=== PATIENT | male | born 2005 | race Caucasian/White ===

== ENCOUNTER 2025-02-13 06:11 | Inpatient (IN) ==
[2025-02-13] MEDS: ALBUT/IPRATROP 3MG/0.5MG NEB 3 ML VIAL INH STA (07:15)
[2025-02-13 07:25] LABS: Hematocrit (blood only) 38.8 % (42.0-52.0); Hemoglobin 13.6 g/dL (14.0-18.0); Immature Granulocytes # (auto) 0.02 K/uL (0.01-0.20); Immature Granulocytes % (auto) 0.3 %; Mean Corpuscular Hemoglobin 31.6 pg (25.0-34.0); Mean Corpuscular Volume 90.0 fL (80.0-100.0); Platelet Count 190 K/uL (130-400); RDW Standard Deviation 38.4 fL (36.4-46.3); Red Blood Count 4.31 M/uL (4.70-6.10); White Blood Count 7.56 K/ul (4.8-10.8)
--- NOTE | 2025-02-13 07:32 | Emergency Department Note ---
History of Present Illness General Chief complaint: Respiratory Problems Stated complaint: TIGHTNESS IN CHEST,COUGH,HEADACHE Time Seen by Provider: 02/13/25 06:34 Source: patient Mode of arrival: ambulatory Limitations: no limitations History of Present Illness Maximum Pain Intensity: 7 Patient is a 19-year-old male with history of asthma who presents with several days of intractable cough and shortness of breath. He also reports chest tightness that is worse with movement. He does state that his apartment has had issues with heating recently and he feels this has triggered his respiratory symptoms. He has tried his inhaler without much relief. Denies any fevers, chills, sore throat, nausea, vomiting, abdominal pain. No recent travel. Multiple sick contacts at the [place] [facility] currently. Home Medications Medication Instructions Recorded Confirmed Type ibuprofen 200 mg tablet 200 mg PO Q6H PRN Pain 02/13/25 02/13/25 History Allergies Allergy/AdvReac Type Severity Reaction Status Date / Time tree and shrub pollen Allergy Unknown Unverified 02/13/25 08:49 tree nut Allergy Unknown Unverified 02/13/25 08:49 Past Med/Surg History Problem List (Updated 02/13/25 @ 09:32 by Paul Rutledge MD) Pneumonia (Acute) Acute viral myocarditis (Acute) Social History Smoking Status: Never smoker Preferred Language: Khmer Feels Safe at Home: Yes Review of Systems Review of systems negative outside of positive findings mentioned in HPI. Physical Exam Vital Signs Vital Signs - 24 hr 02/13/25 06:16 02/13/25 06:25 02/13/25 06:26 Temperature 37.8 C H Temperature Source Temporal Artery Scan Pulse Rate 120 H 112 H Pulse Rate [Finger] Pulse Rhythm Regular Pulse Rhythm [Finger] Pulse Strength Normal Pulse Strength [Finger] Respiratory Rate 17 Respiratory Effort / Characteristics Non-Labored Spontaneous Respiratory Depth Normal Respiratory Pattern Regular Blood Pressure 138/75 Blood Pressure [Right Arm] Blood Pressure Mean 96 Blood Pressure Mean [Right Arm] Blood Pressure Position Sitting Blood Pressure Position [Right Arm] Pulse Oximetry 95 Oxygen Delivery Method Room Air Room Air Sepsis Recent Fever Within 48 Hours No Sepsis New/Unexplained Change in Mental Status N/A Sepsis Action Taken by Nursing No Action Required 02/13/25 06:26 02/13/25 08:00 02/13/25 08:07 Temperature Temperature Source Pulse Rate Pulse Rate [Finger] 117 H 113 H Pulse Rhythm Pulse Rhythm [Finger] Regular Pulse Strength Pulse Strength [Finger] Normal Respiratory Rate 20 19 Respiratory Effort / Characteristics Non-Labored Spontaneous Non-Labored Spontaneous Respiratory Depth Normal Normal Respiratory Pattern Regular Blood Pressure Blood Pressure [Right Arm] 116/68 115/70 Blood Pressure Mean Blood Pressure Mean [Right Arm] 84 85 Blood Pressure Position Blood Pressure Position [Right Arm] Lying Semi-fowlers Pulse Oximetry 96 94 112 H Oxygen Delivery Method Room Air Room Air Room Air Sepsis Recent Fever Within 48 Hours Sepsis New/Unexplained Change in Mental Status Sepsis Action Taken by Nursing 02/13/25 08:07 Temperature Temperature Source Pulse Rate 118 H Pulse Rate [Finger] Pulse Rhythm Pulse Rhythm [Finger] Pulse Strength Pulse Strength [Finger] Respiratory Rate 18 Respiratory Effort / Characteristics Respiratory Depth Respiratory Pattern Blood Pressure Blood Pressure [Right Arm] Blood Pressure Mean Blood Pressure Mean [Right Arm] Blood Pressure Position Blood Pressure Position [Right Arm] Pulse Oximetry 94 Oxygen Delivery Method Room Air Sepsis Recent Fever Within 48 Hours Sepsis New/Unexplained Change in Mental Status Sepsis Action Taken by Nursing See below. Constitutional WD/WN, vitals as above ENMT external ear and nose normal, oropharynx normal Neck trachea midline, no thyromegaly Respiratory normal respiratory effort; no respiratory distress, no labored breathing and does not use accessory muscles Auscultation: + crackles (diffusely ) Cardiovascular Rate/Rhythm: + tachycardic Heart Sounds: normal S1 and normal S2 Extremities: no calf tenderness and no edema Course Administered Medications Discontinued Medications Albuterol (Albut/Ipratrop 3mg/0.5mg Neb 3 Ml Vial) 3 ml INH NOW STA Stop: 02/13/25 06:48 Last Admin: 02/13/25 07:15 Dose: 3 ml Documented By: ANGELICA Ceftriaxone Sodium (Rocephin) 2,000 mg in 50 mls @ 100 mls/hr IV NOW STA Stop: 02/13/25 08:27 Last Infusion: 02/13/25 09:28 Dose: Infused Documented By: Admin: 02/13/25 08:43 Dose: 100 mls/hr Documented By: ANGELICA Medical Decision Making Differential Diagnosis DDx includes but not limited to: viral myocarditis, pericarditis, PNA, viral URI, PE, ACS Medical Records Attestation: I reviewed the patient's medical records. Laboratory Data Attestation: I reviewed the patient's lab results. 11/14/25 07:07 02/13/25 07:07 Lab Results 02/13/25 02/13/25 Range/Units 06:25 07:07 WBC 7.56 (4.8-10.8) K/ul RBC 4.31 L (4.70-6.10) M/uL Hgb 13.6 L (14.0-18.0) g/dL Hct 38.8 L (42.0-52.0) % MCV 90.0 (80.0-100.0) fL MCH 31.6 (25.0-34.0) pg MCHC 35.1 (32.0-36.0) g/dL RDW Std Deviation 38.4 (36.4-46.3) fL RDW Coeff of Tori 11.8 (11.5-14.5) % Plt Count 190 (130-400) K/uL MPV 10.7 (9.4-12.4) fL Immature Gran % (Auto) 0.3 % Neut % (Auto) 75.1 % Lymph % (Auto) 10.2 % [place] % (Auto) 14.3 % Eos % (Auto) 0.1 % Baso % (Auto) 0.0 % Neut # (Auto) 5.68 (1.40-6.50) K/uL Lymph # (Auto) 0.77 L (1.20-3.40) K/uL [place] # (Auto) 1.08 H (0.11-0.59) K/uL Eos # (Auto) 0.01 (0.00-0.50) K/uL Baso # (Auto) 0.00 (0.00-0.20) K/uL Immature Gran # (Auto) 0.02 (0.01-0.20) K/uL D-Dimer 360 (0-500) ug/L FEU Sodium 137 (136-145) mmol/L Potassium 4.2 (3.5-5.1) mmol/L Chloride 101 (98-107) mmol/L Carbon Dioxide 28 (21-32) mmol/L Anion Gap 8 (3-11) BUN 11 (6-23) mg/dl Creatinine 1.13 (0.6-1.4) mg/dl Est Cr Clr Drug Dosing 115.4 ml/min eGFR 96.02 BUN/Creatinine Ratio 9.7 L (10-20) Glucose 118 H (70-99(Fasting)) mg/dl Calcium 9.4 (8.6-10.3) mg/dl Troponin I High Sens 21483.4 H* (0-20) pg/ml B-Natriuretic Peptide 49 (0-100) pg/ml Adenovirus (PCR) DETECTED A (NotDetected) B. pertussis DNA (PCR) Not Detected (NotDetected) B.parapertussis DNA PCR Not Detected (NotDetected) C. pneumoniae DNA (PCR) Not Detected (NotDetected) Coronavirus OC43 (PCR) Not Detected (NotDetected) Coronavirus HKU1 (PCR) Not Detected (NotDetected) Coronavirus 229E (PCR) Not Detected (NotDetected) SARS-CoV-2 (PCR) Not Detected (NotDetected) Coronavirus NL63 (PCR) Not Detected (NotDetected) Human Metapneumovir PCR Not Detected (NotDetected) Influenza Type A (PCR) Not Detected (NotDetected) Influenza Type B (PCR) Not Detected (NotDetected) M. pneumoniae (PCR) Not Detected (NotDetected) Parainfluenza 1 (PCR) Not Detected (NotDetected) Parainfluenza 2 (PCR) Not Detected (NotDetected) Parainfluenza 3 (PCR) Not Detected (NotDetected) Parainfluenza 4 (PCR) Not Detected (NotDetected) RSV (PCR) Not Detected (NotDetected) Entero/Rhino (PCR) Not Detected (NotDetected) Imaging Data Radiologist's Impression: Chest X-Ray 02/13/25 06:22 EXAM: XR chest 2V PA/lateral CLINICAL HISTORY: Cough TECHNIQUE: X-ray images of the chest were obtained in posteroanterior (PA) and lateral projections. COMPARISON: No prior studies available for comparison. FINDINGS: Pulmonary Parenchyma: Mild haziness in the left upper zone, underlying an infective/inflammatory process likely No pulmonary nodules identified. No evidence of pleural effusion or pleural thickening. Heart and Mediastinum: Heart size and shape are normal. No mediastinal widening or masses. No hilar or mediastinal lymphadenopathy. Bony Thorax: Bony thorax appears intact without fractures or deformities. Soft Tissues: Soft tissues overlying the chest wall are unremarkable. IMPRESSION: Mild patchy consolidation in the left upper zone, suggesting infective pneumonic process Clinical and lab parameters correlation is suggested. Electronically signed by Dieudonne Rodriguez 02-13-2025 07:36 AM ECG Data Attestation: I personally reviewed and interpreted this ECG as follows: Indication: + SOB/dyspnea Rate (beats per minute): 111 Rhythm: + sinus tachycardia ECG Intervals/blocks: + Normal QRS, + Normal QT and + Normal [place] ECG [place]: + Normal ECG ST segments: + repolarization abnormalities (Diffuse ST elevation ) Comparison ECG Date: no prior available MDM Narrative Patient is a 19-year-old male who presents for shortness of breath and chest discomfort for several days. Also having a productive cough. Tachycardic on arrival. Stable on room air currently. No evidence of respiratory distress. No wheezing noted on examination however there are crackles on my lung exam. DuoNeb treatment was ordered while workup initiated. Lab work notable for troponin greater than 10,000. Overall clinical picture concerning for viral myocarditis. Adenovirus positive here today. I did order a bedside echocardiogram which was reviewed by Dr. Beckman. He notes mild global hypokinesis. No pericardial effusion noted. No indication for transfer at this time as patient is hemodynamically stable. Supportive care per cardiology. Chest x-ray was reviewed. Left upper lobe opacity noted. IV Rocephin given for possible superimposed bacterial pneumonia. Remaining lab work reviewed and nonconcerning. Stable for admission to hospitalist service for viral myocarditis treatment and pneumonia management. Authorized and Performed by: Myself Total critical care time: Approximately 35 CC diagnosis: Due to a high probability of clinically significant, life threatening deterioration, the patient required my highest level of preparedness to intervene emergently and I personally spent this critical care time directly and personally managing the patient. This critical care time included obtaining a history; examining the patient; pulse oximetry; ordering and review of studies; arranging urgent treatment with development of a management plan; evaluation of patient's response to treatment; frequent reassessment; and, discussions with other providers. This critical care time was performed to assess and manage the high probability of imminent, life-threatening deterioration that could result in multi-organ failure. It was exclusive of separately billable procedures and treating other patients and teaching time. Please see MDM section and the rest of the note for further information on patient assessment and treatment. Impression & Plan Acute viral myocarditis, Pneumonia Discharge Plan Visit Data Chief Complaint: Respiratory Problems Stated Complaint: TIGHTNESS IN CHEST,COUGH,HEADACHE ED Provider: Paul Rutledge Discharge Problem: Acute viral myocarditis, Pneumonia Patient Disposition: Admitted As Inpatient Condition: Fair Forms Stand Alone Forms: [facility] Prescriptions Prescriptions: No Action ibuprofen 200 mg Tablet 200 mg PO Q6H PRN (Reason: Pain) [facility]errals [facility] [Other]
--- NOTE | 2025-02-13 07:36 | XRay Report ---
EXAM: XR chest 2V PA/lateral CLINICAL HISTORY: Cough TECHNIQUE: X-ray images of the chest were obtained in posteroanterior (PA) and lateral projections. COMPARISON: No prior studies available for comparison. FINDINGS: Pulmonary Parenchyma: Mild haziness in the left upper zone, underlying an infective/inflammatory process likely No pulmonary nodules identified. No evidence of pleural effusion or pleural thickening. Heart and Mediastinum: Heart size and shape are normal. No mediastinal widening or masses. No hilar or mediastinal lymphadenopathy. Bony Thorax: Bony thorax appears intact without fractures or deformities. Soft Tissues: Soft tissues overlying the chest wall are unremarkable. IMPRESSION: Mild patchy consolidation in the left upper zone, suggesting infective pneumonic process Clinical and lab parameters correlation is suggested. Electronically signed by Dieudonne Rodriguez 02-13-2025 07:36 AM
[2025-02-13 07:42] LABS: Chlamydia pneumoniae PCR Not Detected (NotDetected); Coronavirus 229E PCR Not Detected (NotDetected); Coronavirus CoV-2 (COVID19)PCR Not Detected (NotDetected); Coronavirus HKU1 PCR Not Detected (NotDetected); Coronavirus NL63 PCR Not Detected (NotDetected); Coronavirus OC43PCR Not Detected (NotDetected); Human Metapneumovirus PCR Not Detected (NotDetected); Parainfluenza Virus 1 PCR Not Detected (NotDetected); Parainfluenza Virus 2 PCR Not Detected (NotDetected); Parainfluenza Virus 3 PCR Not Detected (NotDetected); Parainfluenza Virus 4 PCR Not Detected (NotDetected); Respiratory Syncytial VirusPCR Not Detected (NotDetected); Rhinovirus/Enterovirus PCR Not Detected (NotDetected)
[2025-02-13 07:42] LABS: Anion Gap 8.0 (3-11); Blood Urea Nitrogen 11.0 mg/dl (6-23); Calcium 9.4 mg/dl (8.6-10.3); Carbon Dioxide 28.0 mmol/L (21-32); Chloride 101.0 mmol/L (98-107); Creatinine Clr Calc Pharmacy 115.4 ml/min; Glucose 118.0 mg/dl (70-99(Fasting)); Potassium 4.2 mmol/L (3.5-5.1); Sodium 137.0 mmol/L (136-145)
[2025-02-13] MEDS: cefTRIAXone SODIUM 2,000 MG/50 ML BAG IV STA (08:43)
--- NOTE | 2025-02-13 10:53 | XCELERA ---
[id number]
[2025-02-13] MEDS ORDERED: MELATONIN 3 MG TAB PO PRN (13:02)
[2025-02-13] MEDS ORDERED: ONDANSETRON INJ 2 MG/ML 2 ML VIAL IV PRN (13:02)
[2025-02-13] MEDS ORDERED: POLYETHYLENE (MIRALAX) 17 GM PACK PO PRN (13:02)
[2025-02-13] MEDS ORDERED: NITROGLYCERIN SL 0.4 MG/TAB TAB SL PRN (13:02)
--- NOTE | 2025-02-13 13:11 | History & Physical Report ---
Date of Service February 13, 2025 Assessment & Plan (1) Acute viral myocarditis: (2) Pneumonia: Plan Raghav Holcomb is a 19 y/o M pmhx asthma who presented to the ED this morning for evaluation of chest tightness and cough. He reports that he has had ongoing cough and shortness of breath for the past 3-4 days. Symptoms are associated with chest tightness that worsens with movement and exertion. In the ED, CBC w/o leukocytosis. H&H 13.6 & 38.8. Electrolytes wnl. Cr 1.13. Initial trop 14593. 2hr repeat trop 44963. CXR Raghav Holcomb is a 19 y/o M pmhx asthma who presented to the ED this morning for evaluation of chest tightness and cough. He reports that he has had ongoing cough and shortness of breath for the past 3-4 days. Symptoms are associated with chest tightness that worsens with movement and exertion. He uses a rescue inhaler at home for his asthma, however has not had relief of symptoms. States the chest tightness is mostly in middle of his chest and nonradiating. Denies fever/chills, N/V/D. Has been tolerating po but does endorse some decreased appetite. 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 Denies alcohol, tobacco/nicotine, and recreational drug use. In the ED, CBC w/o leukocytosis. H&H 13.6 & 38.8. Electrolytes wnl. Cr 1.13. Initial trop 51357. 2hr repeat trop 00804. CXR with mild patchy consolidation in the left upper zone, suggestive of infective pneumonia process. Bedside echo noting mild global hypokinesis with EF 40-45% w/o pericardial effusion. Biofire adenovirus positive. Patient hemodynamically stable at this time. He is admitted for chest tightness and cough in the setting of viral myocarditis. echo noting mild global hypokinesis with EF 40-45% w/o pericardial effusion. Biofire adenovirus positive. Patient hemodynamically stable at this time. He is admitted for chest tightness and cough in the setting of viral myocarditis. #acute viral myocarditis/adenovirus - bedside echo completed: EF 40-45% with mild global hypokinesis. no pericardial effusion - patient tachycardiac on exam HR 110s, however BP stable. Temp 37.8. Saturating well on RA. Appears euvolemic on exam. - CXR suspect of pneumonia w/o signs of pleural effusion - Biofire +adenovirus - cardiology consulted, appreciate recommendations : will start patient on low dose carvedilol and entrestro given EF 40-45%; continue to monitor patient to see how he tolerates addition of these medications - carvedilol 3.125mg po bid, entrestro 26/24mg po bid - supportive care for adenovirus - EKG prn chest pain - continuous cardiac monitoring - BMP, Mg qAM #suspected pneumonia - likely atypical, CAP - CXR with mild patchy consolidation in the left upper zone, suggestive of infective pneumonia process. - given dose ceftriaxone in ED - continue abx: ceftriaxone 2g q24h and azithromycin 500mg IV q24h - CBC qAM DVT: SCDs Dispo: med/tele History of Present Illness Chief Complaint: cough & shortness of breath Primary Care Provider: Unknown Unknown Raghav Holcomb is a 19 y/o M pmhx asthma who presented to the ED this morning for evaluation of chest tightness and cough. He reports that he has had ongoing cough and shortness of breath for the past 3-4 days. Symptoms are associated with chest tightness that worsens with movement and exertion. He uses a rescue inhaler at home for his asthma, however has not had relief of symptoms. States the chest tightness is mostly in middle of his chest and nonradiating. Denies fever/chills, N/V/D. Has been tolerating po but does endorse some decreased appetite. 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 Denies alcohol, tobacco/nicotine, and recreational drug use. In the ED, CBC w/o leukocytosis. H&H 13.6 & 38.8. Electrolytes wnl. Cr 1.13. Initial trop 84720. 2hr repeat trop 30756. CXR with mild patchy consolidation in the left upper z one, suggestive of infective pneumonia process. Bedside echo noting mild global hypokinesis with EF 40-45% w/o pericardial effusion. Biofire adenovirus positive. Patient hemodynamically stable at this time. He is admitted for chest tightness and cough in the setting of viral myocarditis. Allergies Allergy/AdvReac Type Severity Reaction Status Date / Time tree and shrub pollen Allergy Unknown Unverified 02/13/25 08:49 tree nut Allergy Unknown Unverified 02/13/25 08:49 Home Medications Medication Instructions Recorded Confirmed Type ibuprofen 200 mg tablet 200 mg PO Q6H PRN Pain 02/13/25 02/13/25 History Past Med/Surg History Problem List (Updated 02/13/25 @ 09:32 by Paul Rutledge MD) Pneumonia (Acute) Acute viral myocarditis (Acute) Social History Smoking Status: Never smoker Preferred Language: Icelandic Feels Safe at Home: Yes Review of Systems Review of Systems: as per hpi Physical Exam Constitutional: patient alert, awake, responding appropriately. No acute distress. Speaking clear full sentences. Non-toxic ill-appearing young adult male. Respiratory: normal respiratory effort, lungs clear to auscultation Cardiovascular: Rate/Rhythm: regular rhythm and + tachycardic Heart Sounds: no murmur and no cardiac rub no LE edema Gastrointestinal (Abdomen): normal bowel sounds, soft, nontender, no hepatosplenomegaly Musculoskeletal: Extremities: extremities normal to inspection Skin: no rashes, warm and dry Neurologic: no focal neurologic defict Psychiatric: A+Ox3, euthymic affect Results & Data Results & Data Vital Signs (Past 12 Hours) Vital Signs Temp Pulse Pulse Resp BP BP Pulse Ox 02/13/25 11:00 117 H 18 109/73 94 02/13/25 10:29 113 H 02/13/25 09:36 97 H 18 109/69 98 02/13/25 08:07 118 H 18 94 02/13/25 08:07 112 H 02/13/25 08:00 113 H 19 115/70 94 02/13/25 06:26 117 H 20 116/68 96 02/13/25 06:26 02/13/25 06:25 112 H 02/13/25 06:16 37.8 C H 120 H 17 138/75 95 O2 Del Method 02/13/25 11:00 Room Air 02/13/25 10:29 02/13/25 09:36 Room Air 02/13/25 08:07 Room Air 02/13/25 08:07 Room Air 02/13/25 08:00 Room Air 02/13/25 06:26 Room Air 02/13/25 06:26 Room Air 02/13/25 06:25 02/13/25 06:16 Room Air Supervising Physician Co-Signing Physician Notes ATTESTATION I also saw the patient and confirmed burciaga portions of the history and exam. I agree with the impression and plan in the resident documentation, and as summarized below. 19-year-old male with no significant past medical history reports 2 to 3-day history of progressive shortness of breath with activity. He actually came to the emergency department yesterday to exclude bronchitis as he was planning a trip to [place] over the weekend and wanted to see if any treated before he left. Ultimately found to have a viral myocarditis; adenovirus positive on BioFire with elevated troponin and echocardiogram demonstrating global hypokinesis with ejection fraction 40-45%. Fortunately, no pericardial effusion was noted on echocardiogram; the patient himself feels fine at rest other than the occasional cough. 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 There are friends at bedside in the emergency department; parents are on their way from their home in [place]. EXAM 100/68, 107, 18, 37.8, 97% on room air pleasant alert. No acute distress. Neck is supple heart tachycardic but regular rhythm Lungs clear throughout with nonlabored respirations. No wheezing is noted. Extremities without edema DATA Labs hemoglobin 13.6 sodium 137, potassium 4.2, BUN 11, creatinine 1.13 troponin 10,859, repeat 11,079 Imaging chest x-ray demonstrates patchy consolidation in the left upper. Echocardiogram ejection fraction 45-50%, although when discussed with cardiology, suggestive of 40-45%. Mild global hypokinesis of the left ventricle. Micro BioFire positive for adenovirus IMPRESSION & PLAN Acute viral myocarditis Heart failure with reduced ejection fraction no signs of fluid overload, so hold on diuresis Coreg 3.125 mg p.o. twice daily Entresto 1 tab p.o. twice daily monitor heart rate and blood pressure consult cardiology Pneumonia azithromycin Rocephin Additional per resident documentation Resident Activity Tracking Resident Involvement: Resident Care Provided Care Provided: Adult Hospital Medicine
[2025-02-13] MEDS: VALSARTAN/SACUBITRIL 26/24MG TAB PO SCH (14:42)
[2025-02-13] MEDS: ACETAMINOPHEN 325 MG TAB PO PRN (14:47)
[2025-02-13] MEDS: AZITHROMYCIN 500 MG/255 ML BAG IV SCH (16:00)
[2025-02-13] MEDS: IBUPROFEN 200 MG TAB PO PRN (18:10)
--- NOTE | 2025-02-13 19:37 | Cardiology Consultation ---
Date of Consultation February 13, 2025 Assessment & Plan (1) Acute viral myocarditis: Plan Although we do not have prior electrocardiograms or prior echocardiograms to be sure his cardiac testing was normal, by far the most likely scenario is that he developed a viral myocarditis with mild left ventricular dysfunction and significant troponin elevation. He may have a component of pericarditis although is not terribly symptomatic with that. I agree with the use of NSAID therapy for pericarditis symptoms but would not treat his myocarditis with anything specific. I would keep him in the hospital until his troponin drops, at that point we may want to repeat his echocardiogram to make sure his left ventricular function has not deteriorated. I agree with the use of beta- blockade and Entresto, starting with a low-dose and titrating relatively quickly if needed. I discussed this with the family in the room, I am hopeful that he will recover completely although I pointed out that that does not always happen but generally does. History of Present Illness Reason for Consultation: Myocarditis Attending Physician: Issac Chavira, DO History of Present Illness This is a 19-year-old male who does have a history of asthma but now presents with chest tightness and cough which feels different than his asthma. The symptoms have been present for 3 to 4 days, his chest tightness is not pain but is also different than he has experienced before. It is not positional. He has not had fever or chills. In the emergency room his electrocardiogram showed inferolateral J-point and ST segment elevation suggestive of pericarditis although repolarization was a possibility and there is no comparison. His cardiac enzymes were markedly elevated, initially over 10,000 and the second around 11,000. An echocardiogram done in the emergency room showed normal left ventricular size with mild global hypokinesis and a left ventricular ejection fraction felt to be 45 to 50%. No pericardial effusion or valvular abnormalities. At the time of my evaluation he was resting in bed, he seems comfortable and he describes having the chest tightness but feels somewhat better than when he came in. He does not seem to have exertional symptoms prior to presentation or at least prior to his recent illness to suggest longstanding cardiac issues. Allergies Allergy/AdvReac Type Severity Reaction Status Date / Time tree and shrub pollen Allergy Unknown Unverified 02/13/25 08:49 tree nut Allergy Unknown Unverified 02/13/25 08:49 Home Medications Medication Instructions Recorded Confirmed Type ibuprofen 200 mg tablet 200 mg PO Q6H PRN Pain 02/13/25 02/13/25 History amoxicillin 875 mg-potassium 1 tab PO BID 5 days #10 tabs 02/14/25 Rx clavulanate 125 mg tablet azithromycin 250 mg tablet 250 mg PO DAILY 4 days #4 tabs 02/14/25 Rx carvedilol 3.125 mg tablet 3.125 mg PO BIDM 30 days #60 tabs 02/14/25 Rx nitroglycerin 0.4 mg sublingual 0.4 mg sublingual Q5M PRN chest 02/14/25 Rx tablet (Nitrostat) pain 30 days #30 tabs sacubitril 24 mg-valsartan 26 mg 1 tab PO BID 30 days #60 tabs 02/14/25 Rx tablet (Entresto) Patient History Social History Smoking Status: Never smoker Second Hand Exposure: No; Do You Dip or Chew Tobacco: No; Hx Alcohol Use: No Hx Substance Use: No Preferred Language: French Communication Ability: Effective Copyist Required: No Beliefs That Will Affect Care: None Current Living Situation: Other Current Living Situation Comment: apartment - college Other Information That Helps Us Care for You: No Feels Safe at Home: Yes Safety Concerns: Feels Safe At This Time Assistive Devices: None Review of Systems Review of Systems: All systems reviewed & are unremarkable except as noted in HPI & below Physical Exam Physical Exam: Constitutional: Alert, cooperative and in no distress. HEENT: Unremarkable Neck: No jugular venous distention, carotid pulses are normal and equal bilaterally without bruits. Pulmonary: Clear to auscultation bilaterally. Cardiac: Regular rhythm with no murmur, gallop or rub. Abdomen: Soft, nontender with normal bowel sounds. Extremities: No edema. Neurologic: No focal findings. Skin: No rash, ecchymoses or petechiae. Results & Data Vital Signs (Past 12 Hours) Vital Signs Temp Pulse Pulse Resp BP Pulse Ox O2 Del Method 02/13/25 16:49 36.9 C 02/13/25 14:20 96 H 02/13/25 14:20 Room Air 02/13/25 14:20 38.4 C H 109 H 16 97/66 L 95 Room Air 02/13/25 13:02 02/13/25 13:02 107 H 18 100/68 97 Room Air 02/13/25 11:00 117 H 18 109/73 94 Room Air 02/13/25 10:29 113 H 02/13/25 09:36 97 H 18 109/69 98 Room Air 02/13/25 08:07 118 H 18 94 Room Air 02/13/25 08:07 112 H Room Air 02/13/25 08:00 113 H 19 115/70 94 Room Air O2 Del Method 02/13/25 16:49 02/13/25 14:20 02/13/25 14:20 02/13/25 14:20 02/13/25 13:02 Room Air 02/13/25 13:02 02/13/25 11:00 02/13/25 10:29 02/13/25 09:36 02/13/25 08:07 02/13/25 08:07 02/13/25 08:00 Laboratory Results Telemetry: Sinus rhythm and sinus bradycardia, no significant arrhythmia. Diagnostic Findings Cardiac Enzymes 02/13/25 02/13/25 Range/Units 07:07 09:11 Troponin I High Sens 23753.4 H* 96984.5 H* (0-20) pg/ml B-Natriuretic Peptide 49 (0-100) pg/ml Coagulation 02/13/25 Range/Units 07:07 B-Natriuretic Peptide 49 (0-100) pg/ml CBC 02/13/25 Range/Units 07:07 WBC 7.56 (4.8-10.8) K/ul RBC 4.31 L (4.70-6.10) M/uL Hgb 13.6 L (14.0-18.0) g/dL Hct 38.8 L (42.0-52.0) % Plt Count 190 (130-400) K/uL Neut # (Auto) 5.68 (1.40-6.50) K/uL Lymph # (Auto) 0.77 L (1.20-3.40) K/uL Hart # (Auto) 1.08 H (0.11-0.59) K/uL Eos # (Auto) 0.01 (0.00-0.50) K/uL Baso # (Auto) 0.00 (0.00-0.20) K/uL Comprehensive Metabolic Panel 02/13/25 Range/Units 07:07 Sodium 137 (136-145) mmol/L Potassium 4.2 (3.5-5.1) mmol/L Chloride 101 (98-107) mmol/L Carbon Dioxide 28 (21-32) mmol/L BUN 11 (6-23) mg/dl Creatinine 1.13 (0.6-1.4) mg/dl Glucose 118 H (70-99(Fasting)) mg/dl Calcium 9.4 (8.6-10.3) mg/dl Intake and Output 02/13/25 02/13/25 02/13/25 06:59 14:59 22:59 Intake Total 50 / 305 255 / 305 Balance 50 / 305 255 / 305 Intake: IV 50 / 305 255 / 305 Azithromycin 500 mg In 255 ml @ 255 / 255 127.5 mls/hr IV Q24H SHAINA Rx#: [id number] cefTRIAXone SODIUM 2,000 mg In 50 / 50 50 ml @ 100 mls/hr IV NOW STA Rx#:[id number] Other: Weight 77.9 kg 77.9 kg Weight Measurement Method Chair Scale Built in [facility] Patient Weight 02/14/25 06:59 Weight 77.9 kg PG Care Time/CCT Total # of Minutes Spent Total Time Spent with Patient: Total time spent is greater than 50% in coordination of care (as documented) at patient's floor/unit and/or counseling patient: Coding Level of Care Code 25819 IN/OBS CONSULT LVL 4,60M Diagnoses Acute viral myocarditis B33.22
[2025-02-14] MEDS: MoRPHine SULFATE 2 MG/ML CARP IV STA ×2 (00:53→09:59)
[2025-02-14 07:12] LABS: Hematocrit (blood only) 39.4 % (42.0-52.0); Hemoglobin 13.7 g/dL (14.0-18.0); Immature Granulocytes # (auto) 0.04 K/uL (0.01-0.20); Immature Granulocytes % (auto) 0.3 %; Mean Corpuscular Hemoglobin 31.3 pg (25.0-34.0); Mean Corpuscular Volume 90.0 fL (80.0-100.0); Platelet Count 204 K/uL (130-400); RDW Standard Deviation 38.4 fL (36.4-46.3); Red Blood Count 4.38 M/uL (4.70-6.10); White Blood Count 11.97 K/ul (4.8-10.8)
[2025-02-14 07:49] LABS: Anion Gap 9.0 (3-11); Blood Urea Nitrogen 14.0 mg/dl (6-23); Calcium 9.6 mg/dl (8.6-10.3); Carbon Dioxide 27.0 mmol/L (21-32); Chloride 101.0 mmol/L (98-107); Creatinine Clr Calc Pharmacy 125.9 ml/min; Glucose 95.0 mg/dl (70-99(Fasting)); Magnesium 2.1 mg/dl (1.7-2.4); Potassium 4.6 mmol/L (3.5-5.1); Sodium 137.0 mmol/L (136-145)
--- NOTE | 2025-02-14 08:10 | Electrocardiogram Report ---
Test Reason : Blood Pressure : */* mmHG Vent. Rate : 111 BPM Atrial Rate : 111 BPM P-R Int : 140 ms QRS Dur : 78 ms QT Int : 296 ms P-R-T Axes : 54 61 59 degrees QTcB Int : [address] elevation, consider early repolarization, pericarditis, or injury Abnormal ECG No previous ECGs available Confirmed by Hector Beckman ([id number]) on 02/14/2025 8:10:20 AM Referred By: REFERRED SELF Confirmed By: Hector Beckman
--- NOTE | 2025-02-14 08:30 | XRay Report ---
SINGLE VIEW CHEST CLINICAL HISTORY: Pneumonia. FINDINGS: An AP, portable, upright chest radiograph is compared to study dated 02/13/2025. The cardio mediastinal silhouette is unremarkable. Airspace consolidation is again seen at the medial left apex. The right lung appears clear. No large pleural effusion or pneumothorax is seen. The bony thorax is grossly intact. IMPRESSION: Left apical consolidation has not appreciably changed from yesterday. Follow-up to resolu tion is recommended. ACT 112: Negative or not required by law. Electronically signed by: Gabe Landeros M.D. 02/14/2025 8:28 AM
[2025-02-14] MEDS: cefTRIAXone SODIUM 2,000 MG/50 ML BAG IV SCH (09:10)
--- NOTE | 2025-02-14 09:13 | Hospitalist Progress Note ---
Date of Service February 14, 2025 Assessment & Plan (1) Acute viral myocarditis: (2) Pneumonia: Plan Raghav Holcomb is a 19 y/o M pmhx asthma who presented to the ED this morning for evaluation of chest tightness and cough. He reports that he has had ongoing cough and shortness of breath for the past 3-4 days. Symptoms are associated with chest tightness that worsens with movement and exertion. In the ED, CBC w/o leukocytosis. H&H 13.6 & 38.8. Electrolytes wnl. Cr 1.13. Initial trop 79772. 2hr repeat trop 24951. CXR suspect of pneumonia w/o signs of pleural effusion. #acute viral myocarditis/adenovirus - on admission, patient was tachycardiac HR 110s and febrile, however BP stable. Saturating well on RA. Bedside echo completed: EF 40-45% with mild global hypokinesis. no pericardial effusion. CXR suspect of pneumonia w/o signs of pleural effusion. Biofire +adenovirus - today, patient hemodynamically stable with better HR, afebrile. BP 97/63, likely due to BB which was started yesterday. - repeat EKG this AM - diffuse ST elevation, similar to admission EKG unchanged and suggestive of myocarditis. - troponin downtrending 8031.8, 2hr repeat 5791.5 - cardiology consulted, appreciate recommendations - continue carvedilol 3.125mg po bid, entrestro 26/24mg po bid - will continue to monitor BP tolerance on these meds - repeat echo ordered for tomorrow morning as trops are downtrending and would like re-evaluate LV function - supportive care for viral infection - EKG prn chest pain - continuous cardiac monitoring - troponin, BMP, Mg qAM #suspected pneumonia - likely atypical CAP - repeat CXR showing left upper consolidation unchanged from prior; no large pleural effusion - continue abx: ceftriaxone 2g q24h and azithromycin 500mg IV q24h - CBC qAM DVT: SCDs Dispo: med/tele - hopeful discharge within 1-2 days pending repeat echo results and lab trends. Admission and Anticipated Discharge Date Admission Date: February 13, 2025 Supervising Physician Co-Signing Physician Notes Attending attestation Pt seen and examined in concert with Dr. Tate. In agreement with the documented findings as noted in the resident documentation with any exceptions or additions as noted here. Ongoing cough and malaise though overall improved subjectively from presentation. Ongoing mild central chest tightness, also improved. VS as noted. On examination, S1/S2 nl RRR no MCG. CTAB. Abd NT/ND BS+ve Viral myocarditis in the setting of adenovirus infection - cardiology consult - continue carvedilol, Entresto. Rec'd repeat echo, will schedule for 02.15.25 to ensure improvement. Pain control as noted. Concern for poneumonia - willc ontinue abx course as noted. Else see resident documentation as noted. Total attending physician time spent with this patient's care on this day: 45 minutes. Subjective Patient seen and examined at bedside this morning. Alert, awake, no acute distress. No acute concerns. Did have episode of chest pain overnight which was relieved with ibuprofen. Denies chest pain, SOB this morning. Tolerating po w/o concern. Has not been OOB yet since admission, encouraged ambulation. Review of Systems Review of Systems: as per hpi Physical Exam Physical Exam: patient more well-appearing than on first evaluation during admission. alert, awake, no acute distress Constitutional: WD/WN, vitals as above Respiratory: normal respiratory effort, lungs clear to auscultation no respiratory distress, no labored breathing and does not use accessory muscles Cardiovascular: Rate/Rhythm: regular rate and regular rhythm Heart Sounds: no murmur and no cardiac rub Extremities: no edema Gastrointestinal (Abdomen): Inspection/Auscultation: + abdomen abnormal to inspection and abdomen not distended Musculoskeletal: Extremities: extremities normal to inspection Skin: no rashes, warm and dry Neurologic: no focal neurologic deficits Psychiatric: A+Ox3, euthymic affect Results & Data Results & Data Vital Signs (Past 12 Hours) Vital Signs Temp Pulse Pulse Resp BP BP Pulse Ox 02/14/25 07:46 37.0 C 90 16 97/63 L 96 02/14/25 06:48 86 02/14/25 03:51 37.5 C 95 H 20 97/59 L 94 02/14/25 00:44 38.5 C H 114 H 22 113/74 97 02/13/25 21:52 94 H O2 Del Method 02/14/25 07:46 Room Air 02/14/25 06:48 02/14/25 03:51 Room Air 02/14/25 00:44 Room Air 02/13/25 21:52
[2025-02-14] MEDS ORDERED: MoRPHine SULFATE 2 MG/ML CARP IM PRN (17:30)
[2025-02-14] MEDS: MoRPHine SULFATE 2 MG/ML CARP IV ONE (17:39)
[2025-02-15 07:26] LABS: Hematocrit (blood only) 36.9 % (42.0-52.0); Hemoglobin 12.7 g/dL (14.0-18.0); Immature Granulocytes # (auto) 0.01 K/uL (0.01-0.20); Immature Granulocytes % (auto) 0.2 %; Mean Corpuscular Hemoglobin 31.1 pg (25.0-34.0); Mean Corpuscular Volume 90.2 fL (80.0-100.0); Platelet Count 219 K/uL (130-400); RDW Standard Deviation 38.5 fL (36.4-46.3); Red Blood Count 4.09 M/uL (4.70-6.10); White Blood Count 6.02 K/ul (4.8-10.8)
[2025-02-15 08:04] LABS: Anion Gap 8.0 (3-11); Blood Urea Nitrogen 12.0 mg/dl (6-23); Calcium 9.6 mg/dl (8.6-10.3); Carbon Dioxide 30.0 mmol/L (21-32); Chloride 101.0 mmol/L (98-107); Creatinine Clr Calc Pharmacy 169.4 ml/min; Glucose 96.0 mg/dl (70-99(Fasting)); Magnesium 2.1 mg/dl (1.7-2.4); Potassium 4.1 mmol/L (3.5-5.1); Sodium 139.0 mmol/L (136-145)
--- NOTE | 2025-02-15 09:57 | XCELERA ---
[id number]
[2025-02-15 11:24] VITALS: RESP 16; TEMP 98.1; O2SAT 97
--- NOTE | 2025-02-15 11:39 | Electrocardiogram Report ---
Test Reason : Blood Pressure : */* mmHG Vent. Rate : 96 BPM Atrial Rate : 96 BPM P-R Int : 156 ms QRS Dur : 84 ms QT Int : 332 ms P-R-T Axes : 47 71 10 degrees QTcB Int : 419 ms Normal sinus rhythm ST elevation, consider early repolarization, pericarditis, or injury Abnormal ECG When compared with ECG of 13-Feb-2025 06:22, ST no longer elevated in Inferior leads T wave amplitude has increased in Anterolateral leads Confirmed by Dennis Rg ([id number]) on 02/15/2025 11:39:00 AM Referred By: REFERRED SELF Confirmed By: Dennis Rg
[2025-02-15 14:57] VITALS: BP 97/59; PULSE 84
--- NOTE | 2025-02-15 15:02 | Discharge Summary ---
Date of Service February 15, 2025 Admission HPI Per Admitting Provider Raghav Holcomb is a 19 y/o M pmhx asthma who presented to the ED this morning for evaluation of chest tightness and cough. He reports that he has had ongoing cough and shortness of breath for the past 3-4 days. Symptoms are associated with chest tightness that worsens with movement and exertion. He uses a rescue inhaler at home for his asthma, however has not had relief of symptoms. States the chest tightness is mostly in middle of his chest and nonradiating. Denies fever/chills, N/V/D. Has been tolerating po but does endorse some decreased appetite. He is currently a student at [employer] with some sick contacts. Denies alcohol, tobacco/nicotine, and recreational drug use. In the ED, CBC w/o leukocytosis. H&H 13.6 & 38.8. Electrolytes wnl. Cr 1.13. Initial trop 68120. 2hr repeat trop 47249. CXR with mild patchy consolidation in the left upper zone, suggestive of infective pneumonia process. Bedside echo noting mild global hypokinesis with EF 40-45% w/o pericardial effusion. Biofire adenovirus pos itive. Patient hemodynamically stable at this time. He is admitted for chest tightness and cough in the setting of viral myocarditis. Admission Exam Per Admitting Provider Constitutional: patient alert, awake, responding appropriately. No acute distress. Speaking clear full sentences. Non-toxic ill-appearing young adult male. Respiratory: normal respiratory effort, lungs clear to auscultation Cardiovascular: Rate/Rhythm: regular rhythm and + tachycardic Heart Sounds: no murmur and no cardiac rub no LE edema Gastrointestinal (Abdomen): normal bowel sounds, soft, nontender, no hepatosplenomegaly Musculoskeletal: Extremities: extremities normal to inspection Skin: no rashes, warm and dry Neurologic: no focal neurologic defict Psychiatric: A+Ox3, euthymic affect Principal Diagnosis acute viral myocarditis pneumonia Discharge Exam patient more well-appearing than on first evaluation during admission. alert, awake, no acute distress Constitutional WD/WN, vitals as above Respiratory normal respiratory effort, lungs clear to auscultation no respiratory distress, no labored breathing and does not use accessory muscles Cardiovascular Rate/Rhythm: regular rate, regular rhythm and + tachycardic Heart Sounds: no murmur and no cardiac rub Extremities: no edema Gastrointestinal (Abdomen) normal bowel sounds, soft, nontender, no hepatosplenomegaly Inspection/Auscultation: + abdomen abnormal to inspection and abdomen not distended Musculoskeletal Extremities: extremities normal to inspection Skin no rashes, warm and dry Psychiatric A+Ox3, euthymic affect Discharge Data Allergies Allergy/AdvReac Type Severity Reaction Status Date / Time tree and shrub pollen Allergy Unknown Unverified 02/13/25 08:49 tree nut Allergy Unknown Unverified 02/13/25 08:49 Consultations 02/13/25 09:26 ED Decision to Admit Stat 02/13/25 13:02 Consult Cardiology Routine Hospital Course (1) Acute viral myocarditis: (2) Pneumonia: Killian Holcomb is a 19 y/o M pmhx asthma who presented to the ED this morning for evaluation of chest tightness and cough. He reports that he has had ongoing cough and shortness of breath for the past 3-4 days. Symptoms are associated with chest tightness that worsens with movement and exertion. In the ED, CBC w/o leukocytosis. H&H 13.6 & 38.8. Electrolytes wnl. Cr 1.13. Initial trop 26601. 2hr repeat trop 56652. CXR suspect of pneumonia w/o signs of pleural effusion. #acute viral myocarditis/adenovirus - on admission, patient was tachycardiac HR 110s and febrile, however BP stable. Saturating well on RA. Bedside echo completed: EF 40-45% with mild global hypokinesis. no pericardial effusion. CXR suspect of pneumonia w/o signs of pleural effusion. Biofire +adenovirus - repeat limited echo completed today showing improvement of EF at 50-55%. Troponin continue to downtrend - 5044. Initial trop 37901. Continuous cardiac monitoring during admission was without actionable events, NSR HR 70s-80s. - EKG with diffuse ST elevation, which is similar to admission and suggestive myocarditis - today, patient hemodynamically stable with better HR, afebrile. BP tolerating coreg and entresto. - cardiology consulted, appreciate recommendations - continue carvedilol 3.125mg po bid - entrestro 26/24mg po bid - will have follow-up with Dr. Beckman within 1-2 weeks from discharge. - supportive care for viral infection #community acquired pneumonia - CXR on admission with left upper lobe consolidation, suspicious of pneumonia. Repeat CXR unchanged from admission. Likely atypical. - abx: - azithromycin 500mg IV q24h for 3 days - course was completed during admission - ceftriaxone 2g IV q24 -- given 3 days of abx during admission. On discharge, transitioned to Augmentin 875-124 po bid for an additional 5 days. Total treatment course for 7 days. Last dose to be 02/20/25 - on exam today, patient well appearing. Lungs CTA BL. No increased work of breathing or accessory muscle usage. CBC wnl. DVT: SCDs Dispo: home discharge today. Total Time Total Time Spent Total Time Spent (In Minutes): 40 Discharge Plan Discharge Items Patient Disposition: Home - Self-Care Reason For Visit: SHORTNESS OF BREATH Discharge Diagnosis: acute viral myocarditis Condition on Discharge: Fair Activity: Resume your previous activity Non-emergency contact: Primary Care Provider and Software Support Engineer Call non-emergency contact if: you have any medication questions, your symptoms worsen, your pain is not controlled and you have a fever Follow-up/Referrals: Hector Beckman MD [Physician] - Unknown,Unknown [Primary Care Provider] - Diet: Regular Addtl Attending Provider Instructions: You were admitted to [facility] for treatment of acute myocarditis in the setting of a viral infection. During admission, you were monitored with serial labs, EKGs, and cardiac monitoring. You troponin (cardiac enzyme) level was elevated on admission and has been continuing to downtrend. An echo was performed that showed reduced function and contraction of your heart, which is common in acute myocarditis. For this, you are being managed with two new medications that will be continued after discharged. Imaging of your chest also shows evidence of pneumonia in the left upper lobe on your lung. You were started on IV antibiotics and will transition to oral antibiotics at home. For your viral infection, continue supportive care with Tylenol or ibuprofen for fever/pain, get adequate rest and increase fluid intake. Medications: NEW: carvedilol 3.125mg by mouth two times a day, Entresto 26/24 mg by mouth two times a day Augmentin 875mg by mouth two times a day for 5 days (last dose 02/20/25) Please follow up with Dr. Beckman and your PCP within 1-2 weeks from discharge! Continue taking other home medications as prescribed. Please return to care if your symptoms worsen, you develop severe or worsening shortness of breath, trouble breathing, or chest pain. Pending Studies at Discharge: No Stand-Alone Forms: [facility], Work/School Release, Smoking Cessation Medications and DC Order Prescriptions: New carvedilol 3.125 mg Tablet 3.125 mg PO BIDM 30 Days Qty: 60 1RF nitroglycerin [Nitrostat] 0.4 mg Tablet, Sublingual 0.4 mg sublingual Q5M PRN (Reason: chest pain) 30 Days Qty: 30 0RF amoxicillin-pot clavulanate 875-125 mg tablet 1 tab PO BID 5 Days Qty: 10 0RF Rx Instructions: last dose 02/20/25 sacubitril-valsartan [Entresto] 24-26 mg tablet 1 tab PO BID Qty: 30 0RF Continued ibuprofen 200 mg Tablet 200 mg PO Q6H PRN (Reason: Pain) Discharge Orders: Discharge Order (Routine); Ordered 02/15/25 Ordered By: Kylee Tate Admission Data Admit Date/Time: 02/13/25 12:36 Attending Provider: Rory Bryant Admit Provider: Kylee Tate Primary Care Provider: Unknown,Unknown Other Providers: Mathew Bautista; Hector Beckman Other Interventions: Discharge Summary Assessment (RN) Last Done: 02/15/25 14:56 Supervising Physician Co-Signing Physician Notes Attending attestation Pt seen and examined in concert with Dr. Tate. In agreement with the documented findings as noted in the resident documentation with any exceptions or additions as noted here. Resolution of presenting chest pain with improvement in cough severity and frequency, as well as fatigue. VS as noted. On examination, S1/S2 nl RRR no MCG. CTAB. Abd NT/ND BS+ve. Repeat echo w/ improvement in EF, troponin continues to downtrend Viral myocarditis in the setting of adenovirus infection - cardiology consult - continue carvedilol, Entresto and follow up with cardiology for further recommendations on downtitration during recovery. Concern for pneumonia - complete abx course per resident documentation. Else see resident documentation as noted. Total attending physician time spent with this patient's care on the day of discharge: 40 minutes. Resident Activity Tracking Resident Involvement: Resident Care Provided Care Provided: Adult [facility]
== END 2025-02-15 15:23 | disposition home or self-care (01) | DRG 193 ==
LOC: ED 06:11 → SUATTDRO 12:36 → EDINP 12:36 → 2W 13:02
DX: B34.0 Adenovirus infection, unspecified; B33.22 Viral myocarditis; J12.0 Adenoviral pneumonia; I40.9 Acute myocarditis, unspecified